=== PATIENT | female | born 1990 | race Caucasian/White ===

== ENCOUNTER 2017-07-16 18:33 | Emergency (ER) | payer OTHER ==
[2017-07-16 18:39] VITALS: BP 113/64
--- NOTE | 2017-07-16 19:06 | ER Document Report ---
ED Medical Screen (RME) - General Chief Complaint: Rectal Pain Stated Complaint: RECTAL PAIN,VOMITING Time Seen by Provider: 07/16/17 19:04 Notes: painful, bleeding, hemorrhoid since yesterday. TRAVEL OUTSIDE OF THE [place] IN LAST 30 DAYS: No - Related Data Allergies/Adverse Reactions: No Known Allergies Allergy (Unverified 07/16/17 18:47) Past Medical History - Social History Chew tobacco use (# tins/day): No Frequency of alcohol use: None Drug Abuse: None Renal/ Medical History: Denies: Hx Peritoneal Dialysis Past Surgical History: Reports: Hx Appendectomy Physical Exam - Vital signs Vitals: Temp Pulse Resp BP Pulse Ox 98.7 F 79 14 113/64 98 07/16/17 18:38 07/16/17 18:38 07/16/17 18:38 07/16/17 18:38 07/16/17 18:38 Course - Vital Signs Vital signs: Temp Pulse Resp BP Pulse Ox 98.7 F 79 14 113/64 98 07/16/17 18:38 07/16/17 18:38 07/16/17 18:38 07/16/17 18:38 07/16/17 18:38
--- NOTE | 2017-07-16 19:58 | ER Document Report ---
ED GI Bleed / Rectal Pain - General Chief Complaint: Rectal Pain Stated Complaint: RECTAL PAIN,VOMITING Time Seen by Provider: 07/16/17 19:04 Notes: Patient is a 27-year-old female that comes emergency department for chief complaint of rectal pain and bleeding. She states she just got over a "stomach bug", states that she was vomiting and having diarrhea. This has resolved. She states she had a normal bowel movement earlier although it is painful. She denies fever or chills. She denies any daily medications. Past medical history of appendectomy. TRAVEL OUTSIDE OF THE [place] IN LAST 30 DAYS: No - Related Data Allergies/Adverse Reactions: No Known Allergies Allergy (Unverified 07/16/17 18:47) Past Medical History - General Information source: Patient - Social History Smoking Status: Never Smoker Chew tobacco use (# tins/day): No Frequency of alcohol use: None Drug Abuse: None Lives with: Family Family History: Reviewed & Not Pertinent Patient has suicidal ideation: No Patient has homicidal ideation: No - Medical History Medical History: Negative Renal/ Medical History: Denies: Hx Peritoneal Dialysis Past Surgical History: Reports: Hx Appendectomy - Immunizations Immunizations up to date: Yes Review of Systems - Review of Systems Constitutional: No symptoms reported EENT: No symptoms reported Cardiovascular: No symptoms reported Respiratory: No symptoms reported Gastrointestinal: See HPI Genitourinary: No symptoms reported Female Genitourinary: No symptoms reported Musculoskeletal: No symptoms reported Skin: No symptoms reported Hematologic/Lymphatic: No symptoms reported Neurological/Psychological: No symptoms reported Physical Exam - Vital signs Vitals: Temp Pulse Resp BP Pulse Ox 98.7 F 79 14 113/64 98 07/16/17 18:38 07/16/17 18:38 07/16/17 18:38 07/16/17 18:38 07/16/17 18:38 Interpretation: Normal - General General appearance: Appears well, Alert In distress: None - HEENT Head: Normocephalic, Atraumatic Eyes: Normal Pupils: PERRL - Respiratory Respiratory status: No respiratory distress Chest status: Nontender Breath sounds: Normal Chest palpation: Normal - Cardiovascular Rhythm: Regular Heart sounds: Normal auscultation Murmur: No - Abdominal Inspection: Normal Distension: No distension Bowel sounds: Normal Tenderness: Nontender. No: Tender, Guarding Organomegaly: No organomegaly - Rectal Hemorrhoids: External - Moderately sized 4:00 located external hemorrhoid, appears to have had recent bleeding, is not thrombosed, no surrounding abnormalities including no induration, fluctuance, or other obvious abnormality. Luly present at bedside during exam. - Back Back: Normal, Nontender - Extremities General upper extremity: Normal inspection, Nontender, Normal color, Normal ROM , Normal temperature General lower extremity: Normal inspection, Nontender, Normal color, Normal ROM , Normal temperature, Normal weight bearing. No: Yaneth's sign - Neurological Neuro grossly intact: Yes Cognition: Normal Orientation: AAOx4 Anais Coma Scale Eye Opening: Spontaneous [place] Coma Scale Verbal: Oriented Anais Coma Scale Motor: Obeys Commands Anais Coma Scale Total: 15 Speech: Normal Motor strength normal: LUE, RUE, LLE, RLE Sensory: Normal - Psychological Associated symptoms: Normal affect, Normal mood - Skin Skin Temperature: Warm Skin Moisture: Dry Skin Color: Normal Course - Re-evaluation Re-evalutation: Soft abdomen, well-appearing patient, unremarkable vital signs, external hemorrhoid that has bled recently but is not thrombosed. No evidence of perirectal abscess or other abnormality at this time. - Vital Signs Vital signs: Temp Pulse Resp BP Pulse Ox 98.7 F 79 14 113/64 98 07/16/17 18:38 07/16/17 18:38 07/16/17 18:38 07/16/17 18:38 07/16/17 18:38 Discharge - Discharge Clinical Impression: External hemorrhoid Condition: Stable Disposition: HOME, SELF-CARE Additional Instructions: Examination shows an external hemorrhoid, no clot is located in the hemorrhoid requiring drainage. This should resolve with time, do not strain with bowel movements at all, take stool softener as prescribed for the next few days, drink plenty of fluids, apply cream to the area. If symptoms continue follow-up with either of the office referrals to have this potentially removed. Return for any concerning symptoms including swelling, fever, or any other concerning symptoms. Hemorrhoids You have hemorrhoids. These are formed by enlargement of veins around the anus. The cause is increased pressure in the veins, from or straining at bowel movements. Hemorrhoids often cause itching and bleeding with bowel movements. When a hemorrhoid becomes clotted, severe pain and swelling result. Soothing creams and suppositories are often prescribed. Warm sitz-baths may also decrease pain, swelling, and itching. Eat a high-fiber diet. Stool softeners such as Metamucil will help. Keep the area very clean. Medicated cleansing pads (such as Tucks) are useful after bowel movements. A hose-mounted shower unit (like a shower massager at low water pressure) can be used to clean around tender hemorrhoid tags. You should call the doctor or return if you develop fever, increasing pain , or an enlarging mass around the anus, or if you simply fail to improve with treatment. Prescriptions: Docusate Sodium [Colace 100 mg Capsule] 100 mg PO ASDIR PRN #30 capsule PRN Reason: Lidocaine/Hydrocortisone AC [Lidocaine-Hc 3-1% Cream] 7 gm RC ASDIR PRN #1 tub PRN Reason: Referrals: [facility] [Provider Group] - Follow up as needed DESIREE RIOS MD [ACTIVE STAFF] - Follow up as needed
== END 2017-07-16 20:07 | disposition home or self-care (01) ==
LOC: ER 18:33
DX: K64.4 Residual hemorrhoidal skin tags (principal); K62.89 Other specified diseases of anus and rectum; Z90.49 Acquired absence of other specified parts of digestive tract
CPT/HCPCS: 99283